=== PATIENT | female | born 1945 | race Caucasian/White ===

== ENCOUNTER 2017-10-14 11:15 | Day surgery (SDC) | payer MEDICARE, OTHER, SELFPAY ==
[2017-10-14] VITALS (11 sets, daily range): BP systolic 153–176; BP diastolic 64–80; PULSE 86–107; RESP 16–18; TEMP 36.3–37; O2SAT 98–100; BMI 19.5
[2017-10-14 12:06] LABS: Bedside Glucose 87 mg/dL (70-110)
--- NOTE | 2017-10-14 13:15 | RAD_ITS ---
STUDY: X-RAY - LUMBAR SPINE REASON FOR EXAM: Female, 71 years old. Back pain. TECHNIQUE: 2 coned-down view(s) of the lumbar spine were obtained intraoperatively. COMPARISON: None FINDINGS: Intraoperative imaging provided for left nerve block. RAD/Lumbar Spine 2 or 3 Views IMPRESSION: Intraoperative imaging provided for left-sided nerve block. Electronically Signed: Kaleb Cutler MD at 12:51 EDT Tel [phone], Service support ,
[2017-10-14] MEDS: HYDROcodone Bitartrate/Apap 5/325 Tablet PO (15:45)
--- NOTE | 2017-10-14 15:45 | SUR.PHASEI ---
MINIMAL CHANGE IN MUSCLE SPASTICITY OR FLEXION IN LEFT LEG/KNEE BUT SLIGHT IMPROVEMENT, MILD IMPROVEMENT IN FLEXION TO RIGHT ARM/ELBOW. PATIENT REPORTS PAIN 80% BETTER. PER DR DUCKWORTH VERBAL INSTRUCTION: FOLLOW UP WITH DR DUCKWORTH IN OCTOBER, MAINTAIN SAME MEDS AT HOME, OKAY TO CONTINUE LYRICA.
== END 2017-10-14 16:15 | disposition home or self-care (01) ==
LOC: SDC 11:17 → AC 11:23
PROVIDERS: Family Provider Family Medicine; PCP Family Medicine; Visit Provider Anesthesiology Pain Medicine
PROC: (CPT 62323; principal; 2017-10-14 13:00)
DX: G71.0 Muscular dystrophy (principal); E11.9 Type 2 diabetes mellitus without complications; I10 Essential (primary) hypertension; E07.9 Disorder of thyroid, unspecified; Z79.84 Long term (current) use of oral hypoglycemic drugs; Z79.82 Long term (current) use of aspirin; Z79.899 Other long term (current) drug therapy; Z78.0 Asymptomatic menopausal state; Z87.440 Personal history of urinary (tract) infections
CPT/HCPCS: 62323; 72100; 76000; 82962; J7120; J0476

== ENCOUNTER 2019-06-13 12:52 | Day surgery (SDC) | payer MEDICARE, MEDICAID, SELFPAY ==
[2019-06-13] VITALS (8 sets, daily range): BP systolic 145–159; BP diastolic 68–78; PULSE 100–125; RESP 14–18; TEMP 36.5–37.3; O2SAT 96–99; BMI 20.2
[2019-06-13 13:41] LABS: Bedside Glucose 136 mg/dL (70-110)
[2019-06-13] MEDS: Lactated Ringers 1,000 ML 100 ML IV (14:07)
--- NOTE | 2019-06-13 14:45 | RAD_ITS ---
STUDY: X-RAY - LUMBAR SPINE REASON FOR EXAM: Female, 73 years old. PAIN PUMP IMPLANT -- 43 SEC TECHNIQUE: Single intraoperative view of the lumbar spine. COMPARISON: None FINDINGS: Intraoperative images demonstrate placement of an implantable catheter along the lumbar spine. Mild compression of the superior endplate of an upper lumbar segment. RAD/Spine 1 View Any Level IMPRESSION: Intraoperative view of the lumbar spine. Electronically Signed: Yuniel Harvey DO at 18:07 EST Tel [phone], Service support ,
[2019-06-13] MEDS: Cefazolin 2 GM in 0.9% Normal Saline 100 ML IV (14:53)
[2019-06-13] MEDS: Bupiv/Epi 0.25% 30 ML Vial (15:29)
[2019-06-13] MEDS: 0.9% Normal Saline (Pres. free 10 ML Vial (16:00)
== END 2019-06-13 19:18 | disposition skilled nursing facility (03) ==
LOC: SDC 12:59 → AC 13:03
PROVIDERS: PCP Family Medicine; Referring Provider Anesthesiology Pain Medicine; Visit Provider Anesthesiology Pain Medicine
PROC: (CPT 62350; principal; 2019-06-13 14:15)
DX: G89.29 Other chronic pain (principal); G35 Multiple sclerosis; E87.1 Hypo-osmolality and hyponatremia; E11.9 Type 2 diabetes mellitus without complications; E03.9 Hypothyroidism, unspecified; I10 Essential (primary) hypertension; E78.5 Hyperlipidemia, unspecified; D64.9 Anemia, unspecified; Z79.82 Long term (current) use of aspirin; Z79.84 Long term (current) use of oral hypoglycemic drugs; Z79.891 Long term (current) use of opiate analgesic; Z79.899 Other long term (current) drug therapy; Z78.0 Asymptomatic menopausal state; Z79.52 Long term (current) use of systemic steroids
CPT/HCPCS: 62350; 62362; 62369; 72020; 76000; 82962; C1778; C1820; J7120; J0475; J3490